=== PATIENT | male | born 2000 | race Two or more races ===

== ENCOUNTER 2019-05-16 13:33 | Emergency (ER) | payer OTHER ==
[~2019-05-16] VITALS: Ht 162.6 cm; Wt 59.9 kg
--- NOTE | 2019-05-16 13:47 | NUR ---
Patient brought in by PD and RA. Patient arousable to stimuli, opens eyes and moaning. Seen and evaluated by Dr. Colon. Patient changed into gown, attached to the security monitor.
--- NOTE | 2019-05-16 13:50 | NUR ---
[facility] at bedside for blood draw.
[2019-05-16 13:57] LABS: BASOPHILS # (AUTO) 0.1 /CMM (0.0-0.2); BASOPHILS % (AUTO) 1.4 % (0.0-2.0); EOSINOPHILS % (AUTO) 0.3 % (0.0-6.0); HEMATOCRIT 40 % (39-51); LYMPHOCYTES # (AUTO) 2.1 /CMM (0.8-4.8); LYMPHOCYTES % (AUTO) 44.7 % (20.0-44.0); MEAN CORPUSCULAR HGB CONC 33 g/dl (31.0-36.0); MEAN CORPUSCULAR VOLUME 85 fL (80-96); MONOCYTES # (AUTO) 0.2 /CMM (0.1-1.30); MONOCYTES % (AUTO) 5.1 % (2.0-12.0); NEUTROPHILS # (AUTO) 2.3 /CMM (1.8-8.9); NEUTROPHILS % (AUTO) 48.5 % (43.0-81.0); PLATELET COUNT (AUTO) 325 /CMM (150-450); RED BLOOD CELL COUNT(AUTO) 4.67 MIL/uL (4.5-6.0); WHITE BLOOD COUNT (AUTO) 4.7 K/uL (4.3-11.0)
[2019-05-16 14:04] LABS: CALCIUM, SERUM 8.6 mg/dL (8.5-10.1); CREATININE 1.2 mg/dL (0.6-1.3); POTASSIUM 3.3 mmol/L (3.5-5.1)
--- NOTE | 2019-05-16 16:19 | NUR ---
PATIENT RELEASED BY PD. PATIENT'S WOUND CLEANSED. STILL ASLEEP AT THIS TIME, BUT AROUSABLE TO STIMULI.
--- NOTE | 2019-05-16 19:30 | NUR ---
Patient resting, no distress noted. Endorsed to P[facility] HALL.
--- NOTE | 2019-05-16 22:17 | NUR ---
pt ok to discharge per dr starks. Patient discharged to home in stable condition. Written and verbal after care instructions given. Patient verbalizes understanding of instruction.Patient is awake and alert to self, day, and place. pt ambulatory with a steady gait. pt uncle at er to pick pt up.
[2019-05-16 22:18] VITALS: BP 124/63
== END 2019-05-16 22:19 | disposition home or self-care (01) ==
LOC: ER 13:37
DX: S00.81XA Abrasion of other part of head, initial encounter (principal); F10.129 Alcohol abuse with intoxication, unspecified; R51 Headache; M54.2 Cervicalgia; Y90.8 Blood alcohol level of 240 mg/100 ml or more; V49.49XA Driver injured in collision with other motor vehicles in traffic accident, initial encounter; Y93.89 Activity, other specified; Y92.488 Other paved roadways as the place of occurrence of the external cause; Y99.8 Other external cause status
CPT/HCPCS: 36415; 70450; 71250; 72125; 74176; 80048; 80307; 85025; 99285; A6403; G0480